=== PATIENT | male | born 1940 | race Caucasian/White ===

== ENCOUNTER 2016-10-02 15:42 | Emergency (ER) | payer OTHER ==
[~2016-10-02] VITALS: Ht 185.4 cm; Wt 86.2 kg
--- NOTE | ~2016-10-02 | EKG ---
[place] [address] [facility] [place] [address] ELECTROCARDIOGRAM REPORT Name: LOUISE CHRISTIANSEN [id number] Admission: 10/02/16 Attend Phys: Discharge: 10/02/16 Date of : 42 Report #: [id number] THIS REPORT FOR: //name// [facility] ED Test Date: 2016-10-02 Test Time: 16:17:29 Pat Name: LOUISE CHRISTIANSEN Department: Room: Gender: Store Consultant: Catalino Kennedy : 1940 Requested By: Tom Cohen Order Number: [id number] MD: Sancho Luna Measurements Intervals [place] Rate: 70 P: 33 MT: 149 QRS: 37 QRSD: 102 T: 41 QT: 401 QTc: 433 Interpretive Statements Sinus rhythm Baseline wander in lead(s) V3 No significant abnormality No previous ECG available for comparison Electronically Signed On 10-03-2016 16:41:02 CDT by Sancho Luna [email or web address] <ELECTRONICALLY SIGNED> By: Sancho Luna MD, [facility] 10/03/16 1641 1617 1617 Sancho Luna MD, FACC /EPI
[2016-10-02 16:32] LABS: HEMATOCRIT 35.6 % (42.0-52.0); HEMOGLOBIN 12.3 gm/dL (14.0-18.0); MCH 36.8 pg (26.0-34.0); MCHC 34.4 g/dL (28.0-37.0); MCV 106.9 fL (80.0-100.0); RBC 3.33 mil/uL (4.50-6.00); RDW 17.1 % (10.5-14.5)
[2016-10-02 16:44] LABS: ANION GAP 11 mmol/L (7-16); BUN 18 mg/dL (7-18); CALCIUM 9.3 mg/dL (8.5-10.1); CHLORIDE 103 mmol/L (98-107); CO2 24 mmol/L (21-32); CREATININE 0.8 mg/dL (0.7-1.3); GLUCOSE 97 mg/dL (74-106); POTASSIUM 4.1 mmol/L (3.5-5.1); SODIUM 138 mmol/L (136-145)
[2016-10-02 16:52] LABS: TROPONIN-I < 0.04 ng/mL (<0.04-0.07)
[2016-10-02 17:40] VITALS: BP 111/69
== END 2016-10-02 18:25 | disposition home or self-care (01) ==
LOC: ER 15:42
PROVIDERS: Emergency Medicine
DX: R42 Dizziness and giddiness (principal); Z88.1 Allergy status to other antibiotic agents; Z88.0 Allergy status to penicillin

== ENCOUNTER → 2017-06-21 | Outpatient (CLI) | payer OTHER | LOC: HYPER 13:32 | DX: I87.2 Venous insufficiency (chronic) (peripheral) (principal); L97.311 Non-pressure chronic ulcer of right ankle limited to breakdown of skin; I25.10 Atherosclerotic heart disease of native coronary artery without angina pectoris; I73.9 Peripheral vascular disease, unspecified; E78.00 Pure hypercholesterolemia, unspecified; Z86.73 Personal history of transient ischemic attack (TIA), and cerebral infarction without residual deficits; Z87.891 Personal history of nicotine dependence; Z72.89 Other problems related to lifestyle ==

== ENCOUNTER → 2017-07-07 | Outpatient (CLI) | payer OTHER | LOC: HYPER 07:01 | DX: L97.311 Non-pressure chronic ulcer of right ankle limited to breakdown of skin (principal); I87.2 Venous insufficiency (chronic) (peripheral); I77.9 Disorder of arteries and arterioles, unspecified; I73.9 Peripheral vascular disease, unspecified; I25.10 Atherosclerotic heart disease of native coronary artery without angina pectoris; E78.00 Pure hypercholesterolemia, unspecified; Z86.73 Personal history of transient ischemic attack (TIA), and cerebral infarction without residual deficits; Z87.891 Personal history of nicotine dependence; Z72.89 Other problems related to lifestyle ==

== ENCOUNTER → 2017-07-28 | Outpatient (CLI) | payer OTHER | LOC: HYPER 07:03 | DX: L97.311 Non-pressure chronic ulcer of right ankle limited to breakdown of skin (principal); I87.2 Venous insufficiency (chronic) (peripheral); I77.9 Disorder of arteries and arterioles, unspecified; I73.9 Peripheral vascular disease, unspecified; I25.10 Atherosclerotic heart disease of native coronary artery without angina pectoris; E78.00 Pure hypercholesterolemia, unspecified; Z86.73 Personal history of transient ischemic attack (TIA), and cerebral infarction without residual deficits; Z87.891 Personal history of nicotine dependence ==

== ENCOUNTER → 2017-08-18 | Outpatient (CLI) | payer OTHER | LOC: HYPER 07:46 | DX: L97.311 Non-pressure chronic ulcer of right ankle limited to breakdown of skin (principal); I87.2 Venous insufficiency (chronic) (peripheral); I77.9 Disorder of arteries and arterioles, unspecified; I73.9 Peripheral vascular disease, unspecified; I25.10 Atherosclerotic heart disease of native coronary artery without angina pectoris; E70.0 Classical phenylketonuria; R21 Rash and other nonspecific skin eruption; Z86.73 Personal history of transient ischemic attack (TIA), and cerebral infarction without residual deficits; Z87.891 Personal history of nicotine dependence ==

== ENCOUNTER → 2017-09-22 | Outpatient (CLI) | payer OTHER | LOC: HYPER 09-08 14:52 | DX: L97.311 Non-pressure chronic ulcer of right ankle limited to breakdown of skin (principal); I87.2 Venous insufficiency (chronic) (peripheral); I73.9 Peripheral vascular disease, unspecified; I25.10 Atherosclerotic heart disease of native coronary artery without angina pectoris; E78.00 Pure hypercholesterolemia, unspecified; R21 Rash and other nonspecific skin eruption; I77.9 Disorder of arteries and arterioles, unspecified; Z86.73 Personal history of transient ischemic attack (TIA), and cerebral infarction without residual deficits; Z87.891 Personal history of nicotine dependence ==

== ENCOUNTER → 2018-04-22 | Outpatient (CLI) | payer OTHER | LOC: HYPER 07:44 | DX: L97.311 Non-pressure chronic ulcer of right ankle limited to breakdown of skin (principal); L97.811 Non-pressure chronic ulcer of other part of right lower leg limited to breakdown of skin; I87.2 Venous insufficiency (chronic) (peripheral); I77.9 Disorder of arteries and arterioles, unspecified; I73.9 Peripheral vascular disease, unspecified; I25.10 Atherosclerotic heart disease of native coronary artery without angina pectoris; E78.00 Pure hypercholesterolemia, unspecified; R21 Rash and other nonspecific skin eruption; Z87.891 Personal history of nicotine dependence; Z86.73 Personal history of transient ischemic attack (TIA), and cerebral infarction without residual deficits ==

== ENCOUNTER → 2018-05-30 | Outpatient (CLI) | payer OTHER | LOC: HYPER 06:41 | DX: L97.311 Non-pressure chronic ulcer of right ankle limited to breakdown of skin (principal); E78.00 Pure hypercholesterolemia, unspecified; I87.2 Venous insufficiency (chronic) (peripheral); I77.9 Disorder of arteries and arterioles, unspecified; I73.9 Peripheral vascular disease, unspecified; I25.10 Atherosclerotic heart disease of native coronary artery without angina pectoris; Z87.891 Personal history of nicotine dependence; Z86.73 Personal history of transient ischemic attack (TIA), and cerebral infarction without residual deficits ==

== ENCOUNTER → 2018-08-10 | Outpatient (CLI) | payer OTHER | LOC: HYPER 06:46 | DX: L97.311 Non-pressure chronic ulcer of right ankle limited to breakdown of skin (principal); I87.2 Venous insufficiency (chronic) (peripheral); I77.9 Disorder of arteries and arterioles, unspecified; I73.9 Peripheral vascular disease, unspecified; I25.10 Atherosclerotic heart disease of native coronary artery without angina pectoris; E78.00 Pure hypercholesterolemia, unspecified; R21 Rash and other nonspecific skin eruption; Z87.891 Personal history of nicotine dependence; Z86.73 Personal history of transient ischemic attack (TIA), and cerebral infarction without residual deficits ==

== ENCOUNTER → 2018-09-20 | Outpatient (CLI) | payer OTHER | LOC: HYPER 06:19 | DX: L97.312 Non-pressure chronic ulcer of right ankle with fat layer exposed (principal); I87.2 Venous insufficiency (chronic) (peripheral); I77.9 Disorder of arteries and arterioles, unspecified; I73.9 Peripheral vascular disease, unspecified; I25.10 Atherosclerotic heart disease of native coronary artery without angina pectoris; E78.00 Pure hypercholesterolemia, unspecified; R21 Rash and other nonspecific skin eruption; Z87.891 Personal history of nicotine dependence; Z86.73 Personal history of transient ischemic attack (TIA), and cerebral infarction without residual deficits ==